=== PATIENT | female | born 1945 | race Caucasian/White ===

== ENCOUNTER → 2017-09-29 | Outpatient (CLI) | payer MEDICARE, BC ==
[~2017-09-29] MED LIST: ALBU6.7H IH; BUDE10.2 IH; CETI10TA30 PO; DICL1TAB PO; OMEG300C PO; OMEP20TA8 PO; [UNRECOGNIZED DRUG - CODE] TP
--- NOTE | 2017-10-03 08:24 | RAD ---
DATE: 09/29/2017 EXAM: MAMMO PAO SCREENING BILATERAL HISTORY: Routine screening COMPARISON: 09/28/2016 This study was interpreted with the benefit of Computerized Aided Detection (CAD). FINDINGS: Breast Density: HETERO The breast parenchyma Is heterogeneouslyy dense, which could reduce sensitivity of mammography. Breast parenchyma level C. There is a small focus of architectural distortion identified in the right upper breast best seen on the MLO view. IMPRESSION: Small focus of architectural distortion identified in the right upper breast best seen on the MLO view. Recommend spot compression view of the right breast. If this persists on the spot compression view, ultrasound is recommended. BI-RADS CATEGORY: 0 INCOMPLETE: NEEDS ADDITIONAL IMAGING EVALUATION AND/OR PRIOR MAMMOGRAMS FOR COMPARISON. RECOMMENDED FOLLOW-UP: ADD ADDITIONAL IMAGING PQRS compliance statement: Patient information was entered into a reminder system with a target due date immediate recall for the next mammogram. Mammography is a sensitive method for finding small breast cancers, but it does not detect them all and is not a substitute for careful clinical examination. A negative mammogram does not negate a clinically suspicious finding and should not result in delay in biopsying a clinically suspicious abnormality. "Our facility is accredited by the [employer] Mammography Program."
== END | disposition home or self-care (01) ==
LOC: MAMMO 13:07
PROVIDERS: ATTEND Internal Medicine
DX: Z12.31 Encounter for screening mammogram for malignant neoplasm of breast (principal)
CPT/HCPCS: 77063; 77067

== ENCOUNTER → 2017-10-16 | Outpatient (CLI) | payer MEDICARE, BC ==
--- NOTE | 2017-10-16 11:46 | RAD ---
DATE: October 16, 2017 EXAM: DIGITAL DIAGNOSTIC RT, SONOGRAPHY BREAST RIGHT HISTORY: Further evaluation of possible architectural distortion of the upper aspect of the right breast seen in the MLO projection only on a screening mammogram dated September 29, 2017. History of benign right breast biopsy. COMPARISON: September 29, 2017 mammogram. This study was interpreted with the benefit of Computerized Aided Detection (CAD). DIAGNOSTIC RIGHT-SIDED MAMMOGRAPHIC FINDINGS: Focal digital compression view of the upper aspect of the right breast in the MLO projection and a digital 90 degree mediolateral view of the right breast were performed. There is some mild architectural distortion present with focal compression which appears less prominent in comparison to the previous study. No architectural distortion is seen in the 90 degree view. RIGHT BREAST SONOGRAPHY: High-resolution sonography of the upper one half of the right breast was performed. No focal sonographic abnormality is evident. Therefore, the finding on the mammogram is benign and is related to previous benign right breast biopsy. IMPRESSION: Benign finding of the right breast. Recommend routine screening mammography in one year. BI-RADS CATEGORY: 2 BENIGN FINDING RECOMMENDED FOLLOW-UP: ADD ADDITIONAL IMAGING PQRS compliance statement: Patient information was entered into a reminder system with a target due date September 30, 2018 for the next mammogram. Mammography is a sensitive method for finding small breast cancers, but it does not detect them all and is not a substitute for careful clinical examination. A negative mammogram does not negate a clinically suspicious finding and should not result in delay in biopsying a clinically suspicious abnormality. "Our facility is accredited by the [employer] Mammography [employer]."
== END | disposition home or self-care (01) ==
LOC: MAMMO 09:29
PROVIDERS: ATTEND Internal Medicine
DX: R92.8 Other abnormal and inconclusive findings on diagnostic imaging of breast (principal)
CPT/HCPCS: 76641; 77065

== ENCOUNTER → 2018-10-01 | Outpatient (CLI) | payer MEDICARE, BC ==
[~2018-10-01] MED LIST changes: +ALBU2.5V8 IH; -ALBU6.7H IH
--- NOTE | 2018-10-01 14:26 | RAD ---
DATE: 10/01/2018 EXAM: MAMMO PAO SCREENING BILATERAL HISTORY: Benign right breast biopsy routine screening. COMPARISON: 09/28/2015, 09/25/2014 mammographic exams This study was interpreted with the benefit of Computerized Aided Detection (CAD). Breast Density: HETERO The breast parenchyma is heterogenously dense, which could reduce sensitivity of mammography. Breast parenchyma level C. FINDINGS: MLO and CC images of each breast were obtained. CAD) tomosynthesis utilized. Benign calcification is present. No masses or distortion. IMPRESSION: No suspicious new finding. BI-RADS CATEGORY: 2 BENIGN FINDING(S) RECOMMENDED FOLLOW-UP: 12M 12 MONTH FOLLOW-UP PQRS compliance statement: Patient information was entered into a reminder system with a target due date in one year for the next mammogram. Mammography is a sensitive method for finding small breast cancers, but it does not detect them all and is not a substitute for careful clinical examination. A negative mammogram does not negate a clinically suspicious finding and should not result in delay in biopsying a clinically suspicious abnormality. "Our facility is accredited by the [employer] Mammography Program."
== END | disposition home or self-care (01) ==
LOC: MAMMO 07:53
PROVIDERS: ATTEND Internal Medicine
DX: Z12.31 Encounter for screening mammogram for malignant neoplasm of breast (principal)
CPT/HCPCS: 77063; 77067

== ENCOUNTER → 2019-10-07 | Outpatient (CLI) | payer MEDICARE, BC ==
--- NOTE | 2019-10-07 12:22 | RAD ---
DATE: October 07, 2019 EXAM: MAMMO PAO SCREENING BILATERAL HISTORY: Screening study. COMPARISON: 2017 and 2018 This study was interpreted with the benefit of Computerized Aided Detection (CAD). 2-D digital mammographic views of both breasts were performed in the CC and MLO projections. 3-D digital tomosynthesis images of both breasts were performed in the CC and MLO projections and reviewed on a computer workstation. FINDINGS: Breast Density: DENSE The breast parenchyma is dense, which could reduce the sensitivity of mammography. Breast parenchyma level density D.. There are no dominant suspicious masses, suspicious microcalcifications or evidence of architectural distortion. IMPRESSION: No mammographic indicators for malignancy. BI-RADS CATEGORY: 1 NEGATIVE RECOMMENDED FOLLOW-UP: 12M 12 MONTH FOLLOW-UP PQRS compliance statement: Patient information was entered into a reminder system with a target due date October 08, 2020 for the next mammogram. Mammography is a sensitive method for finding small breast cancers, but it does not detect them all and is not a substitute for careful clinical examination. A negative mammogram does not negate a clinically suspicious finding and should not result in delay in biopsying a clinically suspicious abnormality. "Our facility is accredited by the [employer] Mammography [employer]." The patient's breast density may affect the ability of mammography to detect breast cancer. There are 4 categories of breast density, A, B, C and D. Breast density A means that most of the breast tissue is replaced with adipose tissue and therefore is not dense. Breast density B means that the breast tissue is mildly dense and scattered. Breast density C means that the breast tissue is heterogeneously dense. Breast density D means that the breast tissue is very dense. Breast densities especially C and D may decrease the sensitivity of mammography to detect breast cancer. Therefore, the patient may benefit from 3-D breast mammography (3D breast tomography) as a part of their screening mammogram. Insurance may or may not pay for this additional imaging. The patient's breast density based on today's mammogram is category D.
== END | disposition home or self-care (01) ==
LOC: MAMMO 07:58
PROVIDERS: ATTEND Internal Medicine
DX: Z12.31 Encounter for screening mammogram for malignant neoplasm of breast (principal)
CPT/HCPCS: 77063; 77067

== ENCOUNTER → 2020-10-21 | Outpatient (CLI) | payer MEDICARE, BC ==
--- NOTE | 2020-10-22 09:14 | RAD ---
DATE: 10/21/2020 12:15 PM EXAM: MAMMO PAO SCREENING BILATERAL HISTORY: Screening COMPARISON: 09/29/2017, 10/01/2018 and 10/07/2019 Bilateral CC and MLO views of the breasts were performed. Bilateral breast tomosynthesis was performed in CC projections. Due to patient limited mobility, 3D MLO images could not be obtained. This study was interpreted with the benefit of Computerized Aided Detection (CAD). FINDINGS: Breast Density: HETERO The breast parenchyma Is heterogeneously dense, which could reduce sensitivity of mammography. Breast parenchyma level C No suspicious masses, microcalcifications or architectural distortion is present to suggest malignancy in either breast. The visualized axillae are unremarkable. IMPRESSION: No mammographic evidence of malignancy. BI-RADS CATEGORY: 1 NEGATIVE RECOMMENDED FOLLOW-UP: 12M 12 MONTH FOLLOW-UP Annual screening mammography is recommended, unless clinically indicated sooner based on symptoms or change in physical exam. PQRS compliance statement: Patient information was entered into a reminder system with a target due date for the next mammogram. Mammography is a sensitive method for finding small breast cancers, but it does not detect them all and is not a substitute for careful clinical examination. A negative mammogram does not negate a clinically suspicious finding and should not result in delay in biopsying a clinically suspicious abnormality. "Our facility is accredited by the [employer] Mammography Program."
== END ==
LOC: MAMMO 11:29
PROVIDERS: ATTEND Internal Medicine
DX: Z12.31 Encounter for screening mammogram for malignant neoplasm of breast (principal); N64.89 Other specified disorders of breast
CPT/HCPCS: 77063; 77067

== ENCOUNTER 2021-01-14 09:50 | Emergency (ER) | payer MEDICARE, BC ==
[~2021-01-14] VITALS: Ht 170.2 cm; Wt 79.5 kg
[2021-01-14 10:07] VITALS: BP 150/99
--- NOTE | 2021-01-14 10:40 | RAD ---
EXAM: Right hand, 3 views. HISTORY: Dog bite. COMPARISON: None. FINDINGS: 3 views of the right hand are obtained. There is no acute fracture, dislocation or subluxat ion. There is severe first carpometacarpal joint space narrowing with subchondral sclerosis, marginal spurring and bony remodeling. There are chronic fragmented spurs associated with this joint. There i s mild first metacarpal phalangeal joint space narrowing and spurring. There is mild to moderate se[place] and third distal interphalangeal joint spurring. There is no foreign body. IMPRESSION: 1. No acute osseous finding or radiodense foreign body. 2. 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 Electronically signed by: Stacey Romano MD (01/14/2021 10:38 AM) [id number]
[2021-01-14 10:58] LABS: BASO % 1 % (0-3); EOS # 0.2 x10^3/uL (0.0-0.7); EOS % 2 % (0-3); HEMATOCRIT 38.7 % (36.0-47.0); HEMOGLOBIN 13.1 g/dL (12.0-15.5); LYMPH # 1.7 x10^3/uL (1.0-4.8); LYMPH % 18 % (24-48); MEAN CORPUSCULAR HEMOGLOBIN 33 pg (25-35); MEAN CORPUSCULAR HGB CONC 34 g/dL (31-37); MEAN CORPUSCULAR VOLUME 99 fL (79-100); MONO # 0.8 x10^3/uL (0.0-1.1); MONO % 9 % (0-9); NEUT # 6.8 x10^3uL (1.8-7.7); NEUT % 72 % (31-73); PLATELET COUNT 149 x10^3/uL (140-400); RED BLOOD COUNT 3.93 x10^6/uL (3.50-5.40); RED CELL DISTRIBUTION WIDTH 13.4 % (11.5-14.5); WHITE BLOOD COUNT 9.5 x10^3/uL (4.0-11.0)
[2021-01-14 11:09] LABS: CALCIUM 9.1 mg/dL (8.5-10.1); CREATININE 1.1 mg/dL (0.6-1.0); GFR 48.3; POTASSIUM 3.7 mmol/L (3.5-5.1)
[2021-01-14 11:14] LABS: ALBUMIN 3.6 g/dL (3.4-5.0); ALBUMIN/GLOBULIN RATIO 0.8 (1.0-1.7); C REACTIVE PROTEIN 25.9 mg/L (0-3.3); TOTAL BILIRUBIN 0.6 mg/dL (0.2-1.0)
[2021-01-14] MEDS ORDERED: AMOX1TAB61 PO (11:34)
--- NOTE | 2021-01-14 11:34 | PHYS DOC ---
Past History Past Medical History: GERD, Hypertension, Hypothyroid Past Surgical History: Hysterectomy, Tubal ligation, Other Additional Past Surgical Histo: Left leg lower. Alcohol Use: None General Adult EDM: Chief Complaint: ANIMAL BITE HPI: HPI: Patient is a 75-year-old female coming in for right hand pain and swelling. Patient was bit 2 days ago by a stray dog. Was going to check to see if it had a color and tags when the dog bit her. Patient does not know what kind of dog it was this about 30 to 40 pounds. Wash the wound out with soap and water. Started having increasing redness and pain right hand and wrist. Last tetanus 3 to 4 years ago. Review of Systems: Review of Systems: All other systems within normal limits except for as noted in the HPI Allergies: Allergies: Allergies Uncoded Allergies Type Severity Reaction Last Updated Verified BENEDRYL Allergy Intermediate 08/13/13 SULFA Allergy Intermediate 08/13/13 Physical Exam: PE: Constitutional: Well developed, well nourished, no acute distress, non-toxic appearance. [] HENT: Normocephalic, atraumatic, bilateral external ears normal, nose normal. [] Eyes: PERRLA, conjunctiva normal, no discharge. [] Neck: No rigidity, supple, no stridor. [] Cardiovascular: Regular rate and rhythm, brisk cap refill [] Lungs & Thorax: Non labored symmetric respirations, no tachypnea or respiratory distress [] Abdomen: Soft, nondistended. Skin: Warm, dry, n, erythema on volar aspect of right distal forearm and right hand. 4 superficial 1 cm linear abrasions to volar aspect of right wrist, 1 superficial 1 cm linear abrasion to ulnar aspect of right wrist Back: Unremarkable Extremities: No deformities, range of motion grossly intact, no lower extremity edema. Range of motion intact, no significant pain with passive flexion and extension [] Neurologic: Alert and oriented X 3, no focal deficits noted. [] Psychologic: Affect normal, judgement normal, mood normal. [] Current Patient Data: Labs: Laboratory Tests Test 01/14/21 10:42 White Blood Count 9.5 x10^3/uL (4.0-11.0) Red Blood Count 3.93 x10^6/uL (3.50-5.40) Hemoglobin 13.1 g/dL (12.0-15.5) Hematocrit 38.7 % (36.0-47.0) Mean Corpuscular Volume 99 fL (79-100) Mean Corpuscular Hemoglobin 33 pg (25-35) Mean Corpuscular Hemoglobin Concent 34 g/dL (31-37) Red Cell Distribution Width 13.4 % (11.5-14.5) Platelet Count 149 x10^3/uL (140-400) Neutrophils (%) (Auto) 72 % (31-73) Lymphocytes (%) (Auto) 18 % (24-48) L Monocytes (%) (Auto) 9 % (0-9) Eosinophils (%) (Auto) 2 % (0-3) Basophils (%) (Auto) 1 % (0-3) Neutrophils # (Auto) 6.8 x10^3uL (1.8-7.7) Lymphocytes # (Auto) 1.7 x10^3/uL (1.0-4.8) Monocytes # (Auto) 0.8 x10^3/uL (0.0-1.1) Eosinophils # (Auto) 0.2 x10^3/uL (0.0-0.7) Basophils # (Auto) 0.0 x10^3/uL (0.0-0.2) Sodium Level 140 mmol/L (136-145) Potassium Level 3.7 mmol/L (3.5-5.1) Chloride Level 101 mmol/L (98-107) Carbon Dioxide Level 31 mmol/L (21-32) Anion Gap 8 (6-14) Blood Urea Nitrogen 17 mg/dL (7-20) Creatinine 1.1 mg/dL (0.6-1.0) H Estimated GFR (Cockcroft-Gault) 48.3 BUN/Creatinine Ratio 15 (6-20) Glucose Level 103 mg/dL (70-99) H Calcium Level 9.1 mg/dL (8.5-10.1) Total Bilirubin Pending Aspartate Amino Transferase (AST) Pending Alanine Aminotransferase (ALT) Pending Alkaline Phosphatase Pending C-Reactive Protein Pending Total Protein Pending Albumin Pending Albumin/Globulin Ratio Pending Vital Signs: Vital Signs Date Time Temp Pulse Resp B/P (MAP) Pulse Ox O2 Delivery O2 Flow Rate FiO2 5/20/21 10:07 98.2 79 16 150/99 (116) 98 Room Air EKG: EKG: [] Radiology/Procedures: Radiology/Procedures: EXAM: Right hand, 3 views. HISTORY: Dog bite. COMPARISON: None. FINDINGS: 3 views of the right hand are obtained. There is no acute fracture, dislocation or subluxation. There is severe first carpometacarpal joint space narrowing with subchondral sclerosis, marginal spurring and bony remodeling. There are chronic fragmented spurs associated with this joint. There is mild first metacarpal phalangeal joint space narrowing and spurring. There is mild to moderate second and third distal interphalangeal joint spurring. There is no foreign body. IMPRESSION: 1. No acute osseous finding or radiodense foreign body. 2. 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 Risk Scores: Score 0 - 3: 2.5% MACE over next 6 weeks - Discharge Home Score 4 - 6: 20.3% MACE over next 6 weeks - Admit for Clinical Observation Score 7 - 10: 72.7% MACE over next 6 weeks - Early Invasive Strategies Course & Med Decision Making: Course & Med Decision Making Superficial wounds with cellulitis. No physical exam findings consistent with flexor extensor tendon synovitis , any deep space infection, abscess, or other complication. Infection appears to be superficial cellulitis. Discussed return precautions. Lengthy discussion with patient regarding rabies prophylaxis. Patient states she can make animal control for has and look for the dog. After discussion of risks and benefits, patient is declining rabies vaccine at this time. Discussed that she can return at any point if she changes her mind. Dragon Disclaimer: Sandra Disclaimer: This electronic medical record was generated, in whole or in part, using a voice recognition dictation system. Departure Departure: Impression: Primary Impression: Dog bite of right upper extremity Additional Impression: Cellulitis of right hand Disposition: HOME / SELF CARE / HOMELESS Condition: STABLE Referrals: MARGRET ARCE MD (PCP) Patient Instructions: Cellulitis Scripts Amoxicillin/Potassium Clav (AUGMENTIN 875-125 TABLET) 1 Each Tablet 1 TAB PO BID for antibiotic for 10 Days, #20 TAB 0 Refills Prov: INOCENCIO RENTERIA MD 01/14/21 INOCENCIO RENTERIA MD January 14, 2021 11:34
[2021-01-14] MEDS ORDERED: cefTRIAXone IM 1 GM VIAL IM ONE (11:45)
== END 2021-01-14 11:50 | disposition home or self-care (01) ==
LOC: ER 09:50
DX: L03.113 Cellulitis of right upper limb (principal); S61.451D Open bite of right hand, subsequent encounter; K21.9 Gastro-esophageal reflux disease without esophagitis; I10 Essential (primary) hypertension; Z90.49 Acquired absence of other specified parts of digestive tract; Z98.51 Tubal ligation status; W54.0XXD Bitten by dog, subsequent encounter
CPT/HCPCS: 36415; 73130; 80053; 85025; 86140; 96372; 99284; J0696

== ENCOUNTER 2021-05-30 14:34 | Emergency (ER) | payer MEDICARE, BC ==
[~2021-05-30] VITALS: Ht 170.2 cm; Wt 79.5 kg
[~2021-05-30 14:34] MED LIST changes: +AMOX1TAB61 PO
[2021-05-30 14:42] VITALS: BP 131/83
--- NOTE | 2021-05-30 15:18 | PHYS DOC ---
Past History Past Medical History: GERD, Hypertension, Hypothyroid Past Surgical History: Hysterectomy, Tubal ligation, Other Additional Past Surgical Histo: Left leg lower. Alcohol Use: None General Adult EDM: Chief Complaint: MECHANICAL FALL HPI: HPI: 75-year-old female presents after mechanical fall. The patient was stepping off of a bus when she lost her footing and fell forward. She tried to catch herself with her hands but she hit the right forehead on the ground. She also hit her left knee. She is able to walk. She has a mild headache. She denies nausea, vomiting, altered sensation, change in vision. She is not on any antiplatelets or anticoagulants. She has no other complaints this time. Review of Systems: Review of Systems: Constitutional: Denies fever or chills Eyes: Denies change in visual acuity HENT: Denies nasal congestion or sore throat Respiratory: Denies cough or shortness of breath Cardiovascular: Denies chest pain or edema GI: Denies abdominal pain, nausea, vomiting, bloody stools or diarrhea : Denies dysuria Musculoskeletal: Left knee pain Integument: Abrasions bilateral knuckles, hematoma above right eye Neurologic: Denies headache, focal weakness or sensory changes Endocrine: Denies polyuria or polydipsia Lymphatic: Denies swollen glands Psychiatric: Denies depression or anxiety Allergies: Allergies: Allergies Coded Allergies Type Severity Reaction Last Updated Verified Sulfa (Sulfonamide Antibiotics) Allergy Intermediate rash 05/30/21 Yes diphenhydramine Allergy Unknown 05/30/21 Yes Physical Exam: PE: Constitutional: Well developed, well nourished, no acute distress, non-toxic appearance. [] HENT: Normocephalic, hematoma above right eye bilateral external ears normal, oropharynx moist, no oral exudates, nose normal. [] Eyes: PERRLA, EOMI, conjunctiva normal, no discharge. [] Neck: Normal range of motion, no tenderness, supple, no stridor. [] Cardiovascular:Heart rate regular rhythm, no murmur [] Lungs & Thorax: Bilateral breath sounds clear to auscultation [] Abdomen: Bowel sounds normal, soft, no tenderness, no masses, no pulsatile masses. [] Skin: Ecchymosis over left knee, superficial abrasions bilateral knuckles [] Back: No tenderness, no CVA tenderness. [] Extremities: Tenderness of the left knee, old surgical scar, able to ambulate. [] Neurologic: Alert and oriented X 3, normal motor function, normal sensory function, no focal deficits noted. [] Psychologic: Affect normal, judgement normal, mood normal. [] Current Patient Data: Vital Signs: Vital Signs Date Time Temp Pulse Resp B/P (MAP) Pulse Ox O2 Delivery O2 Flow Rate FiO2 05/30/21 14:42 98.2 88 16 131/83 (99) 98 Room Air EKG: EKG: [] Radiology/Procedures: Radiology/Procedures: [] Impressions: CT head without contrast PQRS statement: CT scans at this facility use dose reduction including either automated exposure control, iterative reconstructions, and /or weight based radiation dosing via mA and kV modification when appropriate to reduce radiation dose to as low as reasonably achievable. HISTORY: Fall injury, pain. FINDINGS: No intracranial hemorrhage, mass, hydrocephalus, extra-axial fluid collections or infarction. There is mild generalized brain atrophy with mild prominence of ventricles and sulci. There is a 1 cm in thickness right superior periorbital and frontal scalp hematoma. Mastoids and bones are unremarkable. IMPRESSION: No acute intracranial CT abnormality. Right periorbital and frontal scalp hematoma. Electronically signed by: Laat Veronica MD (05/30/2021 3:26 PM) [id number] DICTATED AND SIGNED BY: LATA VERONICA MD DATE: 05/30/21 1524 CC: MARY AZAR DO; MARGRET ARCE MD ~MTH0 0 Study: XR KNEE _3 VIEWS_LT Indication: Fall. Comparison: None. Findings: Partially imaged tibial intramedullary samantha. What is seen of the hardware is intact and well fixated. Concavity of what appears to be the lateral tibial plateau on the lateral view but without a well delineated cortical defect to confirm an acute fracture. Relatively small knee joint effusion without appreciable layering fat. Mild lateral compartment joint space narrowing. Small tricompartmental osteophytes. Normally located patella. Impression: Somewhat small knee joint effusion without layering fat. Concavity of the lateral tibial plateau but without a definitive fracture defect to indicate acuity and this may be chronic/degenerative. If there is inability to bear weight cross-sectional imaging could be considered to further assess. Electronically signed by: KAI VARGAS MD (05/30/2021 4:01 PM) [id number] DICTATED AND SIGNED BY: KAI VARGAS MD DATE: 05/30/21 1558 CC: MARY AZAR DO; MARGRET ARCE MD ~MTH0 0 Heart Score: C/O Chest Pain: N/A Risk Factors: Risk Factors: DM, Current or recent (<one month) smoker, HTN, HLP, family history of CAD, obesity. Risk Scores: Score 0 - 3: 2.5% MACE over next 6 weeks - Discharge Home Score 4 - 6: 20.3% MACE over next 6 weeks - Admit for Clinical Observation Score 7 - 10: 72.7% MACE over next 6 weeks - Early Invasive Strategies Course & Med Decision Making: Course & Med Decision Making Pertinent Labs and Imaging studies reviewed. (See chart for details) The patient's head CT is negative for acute intracranial findings. There was no obvious fracture of the orbit. Her knee x-ray has some abnormalities, but likely or not acute. She is able to ambulate on her own. See patient read for details. Believe the patient just has contusions and abrasions. She is stable for discharge at this time. [] Dragon Disclaimer: Dragon Disclaimer: This electronic medical record was generated, in whole or in part, using a voice recognition dictation system. Departure Departure: Impression: Primary Impression: Fall from stairs Additional Impressions: Contusion of left knee Qualified Codes: S80.02XA - Contusion of left knee, initial encounter Contusion of face Qualified Codes: S00.83XA - Contusion of other part of head, initial encounter Disposition: HOME / SELF CARE / HOMELESS Condition: STABLE Referrals: MARGRET ARCE MD (PCP) Patient Instructions: Contusion, [id number] MARY AZAR DO May 30, 2021 15:18
--- NOTE | 2021-05-30 15:29 | RAD ---
CT head without contrast PQRS statement: CT scans at this facility use dose reduction including either automated exposure cont rol, iterative reconstructions, and /or weight based radiation dosing via mA and kV modification when appropriate to reduce radiation dose to as low as reasonably achievable. HISTORY: Fall injury, pain. FINDINGS: No intracranial hemorrhage, mass, hydrocephalus, extra-axial fluid collections or infarctio n. There is mild generalized brain atrophy with mild prominence of ventricles and sulci. There is a 1 cm in thickness right superior periorbital and frontal scalp hematoma. Mastoids and bones are unrema rkable. IMPRESSION: No acute intracranial CT abnormality. Right periorbital and frontal scalp hematoma. Electronically signed by: Hossein Veronica MD (05/30/2021 3:26 PM) [id number]
--- NOTE | 2021-05-30 16:03 | RAD ---
Study: XR KNEE _3 VIEWS_LT Indication: Fall. Comparison: None. Findings: Partially imaged tibial intramedullary samantha. What is seen of the hardware is intact and well fixated. Concavity of what appears to be the lateral tibial plateau on the lateral view but without a well del ineated cortical defect to confirm an acute fracture. Relatively small knee joint effusion without ap preciable layering fat. Mild lateral compartment joint space narrowing. Small tricompartmental osteop hytes. Normally located patella. Impression: Somewhat small knee joint effusion without layering fat. Concavity of the lateral tibial plateau but without a definitive fracture defect to indicate acuity and this may be chronic/degenerative. If ther e is inability to bear weight cross-sectional imaging could be considered to further assess. Electronically signed by: KAI VARGAS MD (05/30/2021 4:01 PM) [id number]
== END 2021-05-30 16:30 | disposition home or self-care (01) ==
LOC: ER 14:34
DX: S80.02XA Contusion of left knee, initial encounter (principal); S05.11XA Contusion of eyeball and orbital tissues, right eye, initial encounter; K21.9 Gastro-esophageal reflux disease without esophagitis; I10 Essential (primary) hypertension; E03.9 Hypothyroidism, unspecified; Z88.2 Allergy status to sulfonamides; Z88.8 Allergy status to other drugs, medicaments and biological substances; W10.8XXA Fall (on) (from) other stairs and steps, initial encounter; Y93.89 Activity, other specified; Y92.89 Other specified places as the place of occurrence of the external cause; Y99.8 Other external cause status
CPT/HCPCS: 70450; 73562; 99284-25

== ENCOUNTER → 2021-10-25 | Outpatient (CLI) | payer MEDICARE, BC ==
[~2021-10-25] MED LIST changes: -CETI10TA30 PO; +CETI10TA31 PO
--- NOTE | 2021-10-25 14:31 | RAD ---
INDICATION: 76 years of age asymptomatic female patient presents for screening mammography. No person al family history of breast cancer. History of benign right breast biopsy. TECHNIQUE: Full field craniocaudal and mediolateral oblique images of both breasts were obtained usi ng digital technique with tomosynthesis and also analyzed with computer-aided detection software. COMPARISON: Prior mammographic imaging dating back to 09/29/2017. BREAST COMPOSITION: Category C: The breast tissue is heterogeneously dense, which could obscure detec tion of small masses. FINDINGS: No suspicious masses, microcalcifications or architectural distortion is present to suggest malignanc y in either breast. The visualized axillae are unremarkable. IMPRESSION: No mammographic evidence of malignancy. RECOMMENDATION: Annual screening mammography is recommended, unless clinically indicated sooner based on symptoms or change in physical exam. BIRADS 1: NEGATIVE This study was interpreted with the benefit of Computerized Aided Detection (CAD). Patient information is entered into the reminder system with a target due date for the next screening mammogram. Mammography is the most sensitive method for finding small breast cancers, but it does not detect the m all and is not a substitute for careful clinical examination. A negative mammogram does not negate a clinically suspicious finding and should not result in delay in biopsying a clinically suspicious a bnormality. "Our facility is accredited by the [employer] Mammography Program." Electronically signed by: Richy Smiley DO (10/25/2021 2:29 PM) [id number]
== END ==
LOC: MAMMO 08:47
PROVIDERS: ATTEND Internal Medicine
DX: Z12.31 Encounter for screening mammogram for malignant neoplasm of breast (principal)
CPT/HCPCS: 77063; 77067